=== PATIENT | female | born 1955 | race Caucasian/White ===

== ENCOUNTER 2016-04-04 13:14 | Outpatient (CLI) | payer BC | END 2016-04-04 13:15 | disposition home or self-care (01) | DX: Z12.31 Encounter for screening mammogram for malignant neoplasm of breast (principal); R92.2 Inconclusive mammogram ==

== ENCOUNTER 2016-04-05 12:33 | Outpatient (CLI) | payer BC | END 2016-04-05 12:34 | disposition home or self-care (01) | DX: R22.2 Localized swelling, mass and lump, trunk (principal) ==

== ENCOUNTER 2016-04-12 07:50 | Outpatient (CLI) | payer BC | END 2016-04-12 07:51 | disposition home or self-care (01) | DX: E78.5 Hyperlipidemia, unspecified (principal); E03.9 Hypothyroidism, unspecified; K21.9 Gastro-esophageal reflux disease without esophagitis ==

== ENCOUNTER 2016-04-12 10:30 | Outpatient (CLI) | payer BC | END 2016-04-12 10:31 | disposition home or self-care (01) | DX: R92.1 Mammographic calcification found on diagnostic imaging of breast (principal) ==

== ENCOUNTER 2016-04-18 09:12 | Outpatient (CLI) | payer BC ==
[2016-04-18] MEDS ORDERED: BUFFERED LIDOCAINE 10 ML SYRINGE IU ONE ×2 (11:31)
[2016-04-18] MEDS ORDERED: BUPIVACAINE 0.5%-EPI 1:200000 PF 30 ML VIAL SUBQ ONE (11:31)
== END 2016-04-18 09:13 | disposition home or self-care (01) ==
DX: C50.211 Malignant neoplasm of upper-inner quadrant of right female breast (principal); Z17.0 Estrogen receptor positive status [ER+]

== ENCOUNTER 2016-04-18 11:36 | Day surgery (SDC) | payer BC ==
[~2016-04-18 11:36] MED LIST: ceFAZolin 2 GM/50 ML 50 ML IV ONE
[2016-04-18] MEDS ORDERED: LACTATED RINGERS 1,000 ML IV ONE (12:13)
[2016-04-18] MEDS ORDERED: SCOPOLAMINE PATCH TOP ONE (12:54)
[2016-04-18] MEDS ORDERED: fentaNYL 100 MCG/2 ML VIAL IVP ONE (13:15)
[2016-04-18] MEDS ORDERED: LIDOCAINE-MPF 2% 5 ML VIAL IM ONE (13:15)
[2016-04-18] MEDS ORDERED: SUCCINYLCHOLINE 200 MG/10 ML VIAL IVP ONE (13:15)
[2016-04-18] MEDS ORDERED: ONDANSETRON 4 MG/2 ML VIAL IVP ONE (13:15)
[2016-04-18] MEDS ORDERED: ROCURONIUM 50 MG/5 ML VIAL IVP ONE (13:15)
[2016-04-18] MEDS ORDERED: PROPOFOL 200 MG/20 ML VIAL IVP ONE (13:15)
[2016-04-18] MEDS ORDERED: MIDAZOLAM 2 MG/2 ML VIAL IVP ONE (13:15)
[2016-04-18] MEDS ORDERED: DEXAMETHASONE 4 MG/ML VIAL IVP ONE (13:15)
[2016-04-18] MEDS ORDERED: BUPIVACAINE 0.5% PF 30 ML VIAL INFIL ONE ×2 (13:36→14:46)
[2016-04-18] MEDS ORDERED: KETOROLAC 15 MG/ML VIAL ONE (14:48)
[2016-04-18] MEDS ORDERED: oxyCOD/ACETAMIN 5 MG/325 MG TABLET PO ONE (15:35)
[2016-04-18 16:05] VITALS: BP 140/98
--- NOTE | 2016-04-19 08:09 | OPERATIVE REPORT ---
please see 2 blanks, 2nd and 3rd paragraph due to audio DATE OF SURGERY: 04/18/2016 00:00:00 TIME: 1500 hours. PREOPERATIVE DIAGNOSIS: Right lower back mass. POSTOPERATIVE DIAGNOSIS: Right lower back mass. PROCEDURE: An extensive investigation of her right lower back subcutaneous tissues with excision of a lipoma. SURGEON: Cristobal Barakat MD ANESTHESIA: Josh Mclaughlin CRNA (general endotracheal) plus 30 mL of 0.5% Marcaine. ESTIMATED BLOOD LOSS: Less than 10 mL FLUIDS: Crystalloid 1100 mL SPECIMEN REMOVED: A lipoma. DETAILS OF THE OPERATION: After informed consent was obtained detailing the risks of infection, bleeding with all of its risks including transfusion, and , the patient was brought to the operative suite, where general endotracheal anesthesia was induced by Josh Mclaughlin CRNA, and Josh Mclaughlin provided anesthesia care for the entirety of the case. The patient received preoperative antibiotics for prophylaxis against surgical infection. The patient had TEDs and Venodynes placed for prophylaxis against deep venous thrombosis. The patient was then carefully placed prone, taking care to pad all her extremities and prevent any sort of injury. Subsequent to this, the patient was prepped and draped in the usual sterile manner. At this point, a time-in was done that confirmed the patient's name, date of , medical record number , allergies, medications, and that we had the personnel and equipment required to perform the procedure. With the agreement of everyone in the room, the operation was allowed to proceed. A transverse incision was made overlying the mass that had been definitively marked by me preoperatively and signed by me preoperatively. Dissection was carried out down through the subcutaneous tissues all the way to the latissimus dorsi muscle. There was a small fatty tumor at the level of the latissimus dorsi , which was identified but I did not feel was a major contributor to her mass. It felt that there was more mass effect beneath the latissimus dorsi. The fascia was cut, and the muscle fibers itself was split, taking care not to cut any significant muscle fibers. Dissection went all the way down to her rib, looking for additional tissue, of which there was none. I performed an extensive investigation took place at this plane. No hernia was found and although the muscle fibers were robust this was not anything there that I could remove. It was hard for me to comprehend how this extremely small lipoma could be causing her symptoms and mass. Since I could not find anything else, I opted to excise the lipoma, which was done using serial applications of Bovie. The fascia of the latissimus dorsi muscle was then closed using 2-0 Vicryl in a running fashion. Subcutaneous tissues were closed using simple 2-0 Vicryl sutures. The skin was approximated using a 4-0 Monocryl in a running subcuticular fashion. The skin was cleaned of its prep. Mastisol and Steri- Strips were applied. The patient was subsequently extubated and taken to the recovery room in good and stable condition, having tolerated the procedure well. JOB #: [id number] JOB #:[id number]
== END 2016-04-18 11:37 | disposition home or self-care (01) ==
LOC: SDS 11:36
PROVIDERS: ATTEND Surgery
PROC: 0JB70ZZ Excision of Back Subcutaneous Tissue and Fascia, Open Approach (ICD-10-PCS; 2016-04-18)
PROC: 0JQ70ZZ Repair Back Subcutaneous Tissue and Fascia, Open Approach (ICD-10-PCS; principal; 2016-04-18 11:30)
DX: D17.1 Benign lipomatous neoplasm of skin and subcutaneous tissue of trunk (principal); C50.211 Malignant neoplasm of upper-inner quadrant of right female breast; Z17.0 Estrogen receptor positive status [ER+]; E03.9 Hypothyroidism, unspecified; E66.9 Obesity, unspecified; Z68.38 Body mass index [BMI] 38.0-38.9, adult
CPT/HCPCS: 11402; 12032; 19081; 77065; 88304; 88305; 88341; 88342; 88360; A9270; J0690; J3490; J7120

== ENCOUNTER 2016-05-05 08:29 | Outpatient (CLI) | payer BC ==
[2016-05-05] MEDS ORDERED: GADOBUTROL 15 MMOL/15 ML VIAL IVP ONE (09:46)
== END 2016-05-05 08:30 | disposition home or self-care (01) ==
DX: C50.911 Malignant neoplasm of unspecified site of right female breast (principal)
CPT/HCPCS: 77059; A9585

== ENCOUNTER 2016-05-30 08:26 | Day surgery (SDC) | payer BC ==
[2016-05-30] MEDS ORDERED: ceFAZolin 2 GM/50 ML 50 ML IV ONE (08:39)
[2016-05-30] MEDS ORDERED: LACTATED RINGERS 1,000 ML IV ONE ×2 (09:08→11:50)
[2016-05-30] MEDS ORDERED: SCOPOLAMINE PATCH TOP ONE (10:30)
[2016-05-30] MEDS ORDERED: LIDOCAINE-MPF 2% 5 ML VIAL IM ONE (11:00)
[2016-05-30] MEDS ORDERED: fentaNYL 100 MCG/2 ML VIAL IVP ONE (11:00)
[2016-05-30] MEDS ORDERED: MIDAZOLAM 2 MG/2 ML VIAL IVP ONE (11:00)
[2016-05-30] MEDS ORDERED: KETAMINE 500 MG/10 ML VIAL IVP ONE (11:00)
[2016-05-30] MEDS ORDERED: PROPOFOL 200 MG/20 ML VIAL IVP ONE (11:00)
[2016-05-30] MEDS ORDERED: DEXAMETHASONE 4 MG/ML VIAL IVP ONE (11:00)
[2016-05-30] MEDS ORDERED: METOPROLOL 5 MG/5 ML VIAL IVP ONE ×2 (11:00→16:23)
[2016-05-30] MEDS ORDERED: ONDANSETRON 4 MG/2 ML VIAL IVP ONE (11:00)
[2016-05-30] MEDS ORDERED: BUPIVACAINE 0.5% PF 30 ML VIAL SUBQ ONE ×2 (12:17→15:01)
[2016-05-30] MEDS: HYDROmorphone 1 MG/ML SYRINGE ONE ×2 (15:55→16:05)
[2016-05-30] MEDS: oxyCOD/ACETAMIN 5 MG/325 MG TABLET PO PRN (18:55)
[2016-05-30] MEDS: HYDROmorphone 1 MG/ML SYRINGE IVP PRN (20:19)
[2016-05-31] MEDS: HYDROmorphone 1 MG/ML SYRINGE IVP PRN ×5 (00:09→05:07)
[2016-05-31] MEDS: oxyCOD/ACETAMIN 5 MG/325 MG TABLET PO PRN ×3 (00:10→12:21)
[2016-05-31] MEDS: ONDANSETRON 4 MG/2 ML VIAL IVP PRN ×2 (01:22→08:10)
== END 2016-05-31 13:50 | disposition home or self-care (01) ==
PROC: C71M1ZZ Planar Nuclear Medicine Imaging of Trunk Lymphatics using Technetium 99m (Tc-99m) (ICD-10-PCS; principal; 2016-05-30 10:30)
PROC: 0HTV0ZZ Resection of Bilateral Breast, Open Approach (ICD-10-PCS; 2016-05-30 10:30)
DX: C50.911 Malignant neoplasm of unspecified site of right female breast (principal); E03.9 Hypothyroidism, unspecified; K21.9 Gastro-esophageal reflux disease without esophagitis; Z90.710 Acquired absence of both cervix and uterus; Z79.82 Long term (current) use of aspirin
CPT/HCPCS: 19303; 78195; A9270; A9541; J0690; J1170; J3490; J7120

== ENCOUNTER 2016-05-30 15:37 | Day surgery (SDC) | payer BC ==
[2016-05-31] MEDS ORDERED: ONDANSETRON 4 MG/2 ML VIAL ONE (08:03)
[2016-05-31] MEDS ORDERED: SODIUM CHLORIDE FLUSH 0.9% 10 ML SYRINGE IVP ONE (08:04)
[2016-05-31] MEDS ORDERED: oxyCOD/ACETAMIN 5 MG/325 MG TABLET PO ONE (08:43)
== END 2016-05-30 15:38 | disposition designated cancer center or children's hospital (05) ==
PROC: C71M1ZZ Planar Nuclear Medicine Imaging of Trunk Lymphatics using Technetium 99m (Tc-99m) (ICD-10-PCS; principal; 2016-05-30)
DX: C50.911 Malignant neoplasm of unspecified site of right female breast (principal)

== ENCOUNTER 2016-07-07 09:54 | Day surgery (SDC) | payer BC ==
[2016-07-07] MEDS ORDERED: LACTATED RINGERS 1,000 ML IV ONE (10:00)
[2016-07-07] MEDS ORDERED: SCOPOLAMINE PATCH TOP ONE (12:14)
[2016-07-07] MEDS ORDERED: BUPIVACAINE 0.5% PF 30 ML VIAL SUBQ ONE ×2 (13:16)
[2016-07-07] MEDS ORDERED: MIDAZOLAM 2 MG/2 ML VIAL IVP ONE (13:22)
[2016-07-07] MEDS ORDERED: fentaNYL 100 MCG/2 ML VIAL IVP ONE (13:22)
[2016-07-07] MEDS ORDERED: PROPOFOL 200 MG/20 ML VIAL IVP ONE (13:22)
[2016-07-07] MEDS ORDERED: oxyCOD/ACETAMIN 5 MG/325 MG TABLET PO ONE (14:16)
== END 2016-07-07 09:55 | disposition home or self-care (01) ==
PROC: 0JH63XZ Insertion of Tunneled Vascular Access Device into Chest Subcutaneous Tissue and Fascia, Percutaneous Approach (ICD-10-PCS; principal; 2016-07-07 11:00)
DX: C50.911 Malignant neoplasm of unspecified site of right female breast (principal); C79.9 Secondary malignant neoplasm of unspecified site; E03.9 Hypothyroidism, unspecified; K21.9 Gastro-esophageal reflux disease without esophagitis; Z90.13 Acquired absence of bilateral breasts and nipples; B00.1 Herpesviral vesicular dermatitis; E78.5 Hyperlipidemia, unspecified; J45.909 Unspecified asthma, uncomplicated; Z79.82 Long term (current) use of aspirin; Z90.710 Acquired absence of both cervix and uterus; Z90.79 Acquired absence of other genital organ(s); Z90.722 Acquired absence of ovaries, bilateral
CPT/HCPCS: 36561; 71010; 93005; A9270; C1788; J0690; J3490; J7120

== ENCOUNTER 2017-06-18 14:11 | Outpatient (CLI) | payer BC ==
[2017-06-18 18:17] LABS: THYROID STIMULATING HORMONE 1.48 uIU/mL (0.34-5.60)
[2017-06-18 18:20] LABS: FREE T4 (FREE THYROXINE) 0.6 ng/dL (0.58-1.64)
== END 2017-06-18 14:12 | disposition home or self-care (01) ==
LOC: LAB.F 14:11
PROVIDERS: ATTEND Family Medicine
DX: E03.9 Hypothyroidism, unspecified (principal)
CPT/HCPCS: 36415; 84439; 84443; 84481

== ENCOUNTER 2017-06-28 14:45 | Outpatient (CLI) | payer BC | END 2017-06-28 14:46 | disposition home or self-care (01) | LOC: CAM 14:45 | PROVIDERS: ATTEND Internal Medicine Hematology & Oncology | DX: G62.0 Drug-induced polyneuropathy (principal) | CPT/HCPCS: 97810; 97811 ==

== ENCOUNTER 2017-07-12 14:54 | Outpatient (CLI) | payer BC | END 2017-07-12 14:55 | disposition home or self-care (01) | LOC: CAM 14:54 | PROVIDERS: ATTEND Internal Medicine Hematology & Oncology | DX: G62.0 Drug-induced polyneuropathy (principal) | CPT/HCPCS: 97813; 97814 ==

== ENCOUNTER 2017-07-19 14:38 | Outpatient (CLI) | payer BC | END 2017-07-19 14:39 | disposition home or self-care (01) | LOC: CAM 14:38 | PROVIDERS: ATTEND Internal Medicine | DX: G62.9 Polyneuropathy, unspecified (principal) | CPT/HCPCS: 97813; 97814 ==

== ENCOUNTER 2017-07-26 14:52 | Outpatient (CLI) | payer BC | END 2017-07-26 14:53 | disposition home or self-care (01) | LOC: CAM 14:52 | PROVIDERS: ATTEND Internal Medicine | DX: G62.9 Polyneuropathy, unspecified (principal) | CPT/HCPCS: 97813; 97814 ==